=== PATIENT | male | born 1990 | race Caucasian/White ===

== ENCOUNTER 2017-03-06 03:47 | Emergency (ER) | payer OTHER ==
[2017-03-06 03:57] VITALS: O2SAT 98
[2017-03-06] MEDS ORDERED: XYLOCAINE 1% HCL 20 ML MDV ONE (04:09)
--- NOTE | 2017-03-06 04:11 | ERPHSYRPT ---
- History of Present Illness Time Seen by Provider: 03/06/17 04:00 Source: patient Physician History: PATIENT SUSTAINED LACERATION TO RIGHT HAND AFTER MOVING FURNITURE, SUSTAINED LACERATION OVER PALM, AND SWELLING OVER BACK OF HAND. Occurred: hours ago Method of Injury: direct blow, incised Quality: constant Severity of Pain-Max: moderate Severity of Pain-Current: moderate Extremities Pain Location: hand: right Modifying Factors: Improves With: movement Allergies/Adverse Reactions: No Known Drug Allergies Allergy (Unverified 03/06/17 04:20) - Review of Systems Musculoskeletal: Injury - Nursing Vital Signs Nursing Vital Signs: Initial Vital Signs Temperature 98.7 F Temperature Source Oral Pulse Rate 92 Respiratory Rate 20 Blood Pressure [] 118/70 Pain Intensity 5 - Physical Exam General Appearance: alert Abdominal Exam: No guarding Back Exam: No vertebral tenderness Hand Exam: ecchymosis (FAINT ECCHYMOSIS DORSUM RIGHT HAND PROXIMAL TO DISTAL 4TH TO 5TH METACARPALS, NO CREPITUS NOTED), laceration (THERE IS A 5CM LACERATION INTO MUSCLE RIGHT THENAR EMINENCE, NO EVIDENCE OF FOREIGN BODY, THERE IS ERYTHEMA OF INCISIONAL WOUND EDGES. FULL RANGE OF MOTION ALL DIGITS), swelling Neuro/Tendon Exam: normal motor functions, no evidence tendon injury Mental Status Exam: alert, oriented x 3, cooperative Skin Exam: normal color, warm, dry SpO2 Interpretation: normal SpO2: 98 Oxygen Delivery: Room Air Procedures - Laceration/Wound Repair Right Hand Wound Location: Right, hand (THENAR EMINENCE) Wound Length (cm): 5 Wound's Depth, Shape: into muscle, linear Wound Explored: clean Irrigated: Yes Hibiclens Prep: Yes Anesthesia: local, 2% Lidocaine Volume Anesthetic (ccs): 6 Wound Repaired With: sutures Suture Size/Type: 4-0 Number of Sutures: 10 Sterile Dressing Applied?: Yes - Radiology Exams Right Hand X-ray Interpretation: Interpreted by me, Negative, No Fracture Ordered Tests: Active Orders 24 hr Category Date Time Status Wound Care STAT Care 03/06/17 04:33 Active HAND (MINIMUM 3 VIEWS) Stat Exams 03/06/17 04:02 Taken Medication Summary Discontinued Medications Generic Name Dose Route Start Last Admin Trade Name Freq PRN Reason Stop Dose Admin Amoxicillin/Clavulanate Potassium 875 mg 03/06/17 04:47 Augmentin 875-125 Tablet PO 03/06/17 04:48 STAT ONE Bacitracin 0.9 gm 03/06/17 04:33 03/06/17 04:44 Baciguent Packet TP 03/06/17 04:34 0.9 gm STAT ONE Administration Bacitracin Confirm 03/06/17 04:34 Baciguent Packet Administered 03/06/17 04:35 Dose 1 gm .ROUTE .STK-MED ONE Diphtheria/Tetanus/Acell Pertussis 0.5 ml 03/06/17 04:03 03/06/17 04:26 Adacel Vial IM 03/06/17 04:04 0.5 ml .ONCE ONE Administration Diphtheria/Tetanus/Acell Pertussis Confirm 03/06/17 04:25 Adacel Vial Administered 03/06/17 04:26 Dose 0.5 ml IM .STK-MED ONE Lidocaine HCl Confirm 03/06/17 04:09 Xylocaine 1% Hcl 20 Ml Mdv Administered 03/06/17 04:10 Dose 10 ml .ROUTE .STK-MED ONE Lidocaine HCl 10 ml 03/06/17 04:22 03/06/17 04:26 Xylocaine 1% Hcl 20 Ml Mdv IJ 03/06/17 04:23 10 ml STAT ONE Administration - Progress Progress: pain not gone completely Progress Note: 03/06/17 04:50 PATIENT GIVEN AUGMENTIN 875MG ORALLY, TYLENOL #3, 2 TABLETS TAKE HOME Counseled pt/family regarding: diagnosis, need for follow-up, rad results - Departure Time of Disposition: 04:53 Departure Disposition: Home Clinical Impression: LACERATION RIGHT HAND Condition: Stable Critical Care Time: No Referrals: DOCTOR,NO FAMILY [Primary Care Provider] - Additional Instructions: ANTIBIOTIC AUGMENTIN 875MG TWICE DAILY FOR 10 DAYS. HAVE STITCHES REMOVED AT 10 DAYS. TYLENOL EVERY 4 HOURS FOR PAIN OR MOTRIN 600MG EVERY 6 HOURS FOR MILD TO MODERATE PAIN. TYLENOL #3 EVERY 4 HOURS FOR SEVERE PAIN. WATCH FOR SIGNS OF INFECTION, REDNESS, SWELLING OR DRAINAGE Prescriptions: Codeine Phosphate/APAP #3 [Tylenol #3 Tablet] 1 tab PO Q4H PRN PRN #15 tablet PRN Reason: Pain Ibuprofen 600 mg PO Q6H PRN PRN #20 tablet PRN Reason: Pain Amox Tr/Potass Clav. 875 mg [Augmentin 875-125 Tablet] 875 mg PO BID #20 tablet
[2017-03-06] MEDS ORDERED: XYLOCAINE 1% HCL 20 ML MDV IJ ONE (04:22)
[2017-03-06] MEDS: Adacel Vial IM ONE ×3 (04:25→05:08)
[2017-03-06] MEDS ORDERED: Adacel Vial IM ONE (04:25)
[2017-03-06] MEDS ORDERED: BACIGUENT PACKET TP ONE (04:33)
[2017-03-06] MEDS ORDERED: BACIGUENT PACKET ONE (04:34)
[2017-03-06] MEDS ORDERED: Tylenol #3 Tablet PO ONE (04:47)
[2017-03-06] MEDS ORDERED: Augmentin 875-125 Tablet PO ONE (04:47)
[2017-03-06] MEDS ORDERED: Tylenol #3 Tablet ONE (04:50)
[2017-03-06] MEDS ORDERED: Augmentin 875-125 Tablet ONE (04:50)
[2017-03-06 05:17] VITALS: BP 122/68; PULSE 96
--- NOTE | 2017-03-06 08:51 | XRAY ---
Indication: Laceration. Comparison: None 3 views of the right hand demonstrates thenar eminence soft tissue swelling and old distal fifth metacarpal fracture deformity. No other bony, articular, or soft tissue abnormalities.
== END 2017-03-06 05:15 | disposition home or self-care (01) ==
LOC: ED 03:47
PROC: 0HQFXZZ Repair Right Hand Skin, External Approach (ICD-10-PCS; principal; 2017-03-06)
DX: S61.411A Laceration without foreign body of right hand, initial encounter (principal)
CPT/HCPCS: 12002; 73130; 90471; 90715; 96372; 99284; A9270-GY